=== PATIENT | male | born 1955 | race Caucasian/White ===

== ENCOUNTER 2016-08-26 09:41 | Emergency (ER) | payer BC ==
--- NOTE | ~2016-08-26 | ER ---
PATIENT'S NAME: [facility]OFF [facility] AGE: 60 Y [address] ROOM: [place] [address] LOCATION: ED ADMIT DATE: 08/26/2016 ER/Outpatient Report DISCHARGE DATE: 08/26/2016 FAMILY PHYSICIAN: Stacie Plunkett MD ATTENDING PHYSICIAN: Diana Gonzalez Time of Arrival: 0941 hours. Time of Evaluation: 1100 hours. IDENTIFICATION: A 60-year-old male. CHIEF COMPLAINT: Left foot wound bleeding. HISTORY OF PRESENT ILLNESS: The patient is a 60-year-old male, who has an ulcer on the medial aspect of his left foot, seen by Wound Care yesterday. A dressing was placed, which he is supposed to change on Sunday, and then follows up with them on . The dressing is soaked through with blood, so he came in to the ER today. He has diabetes. He has no pain. He does have some peripheral neuropathy. PAST MEDICAL HISTORY: ALLERGIES: CALAMINE LOTION. CURRENT MEDICATIONS: 1. Metformin. 2. Ramipril. 3. Tamsulosin. 4. Amlodipine. 5. Citalopram. 6. Simvastatin. 7. Tresiba. 8. Fish oil. 9. Aspirin. 10. Multivitamin. 11. Zyrtec. 12. Naproxen. 13. Cinnamon. 14. Prilosec. MEDICAL PROBLEMS: Diabetes mellitus, hyperlipidemia, and hypertension. PATIENT'S NAME: GEOFF [facility] AGE: 60 Y [address] ROOM: [place] [address] LOCATION: [facility] ADMIT DATE: 08/26/2016 ER/Outpatient Report DISCHARGE DATE: 08/26/2016 FAMILY PHYSICIAN: Stacie Plunkett MD ATTENDING PHYSICIAN: Diana Gonzalez SOCIAL HISTORY: The patient lives here in [place]. His primary care physician is Dr. Plunkett. Tobacco use, denies. Alcohol use, denies. Drug use, denies. REVIEW OF SYSTEMS: All systems reviewed and negative other than what is noted in the HPI. PHYSICAL EXAMINATION: VITAL SIGNS: Height 5 feet 11 inches, weight 138.6 kg. Blood pressure 153/62, pulse 76, respirations 16, temperature 97.3, and saturations 96% on room air. GENERAL: A 60-year-old male, in no acute distress. EXTREMITIES: Left lower extremity dressing was removed. The patient had dried blood on his foot, this was all cleaned up. He had no active areas of bleeding. He did have some superficial varicosities and venous staining. Again, no active bleeding. The wound had no surrounding erythema or drainage. Dressing again was applied with Skin-Prep to the wound margins and the Mepilex foam dressing reapplied in the ER. IMPRESSION: Left foot ulcer with bleeding varicosity, controlled. No active bleeding at this time. Dressing reapplied. Follow up with Wound Care, Sunday or Sunday. Follow up with Valentin at [facility] as scheduled, Sunday at 9:00 a.m. and keep their appointment on . The patient and his understand and agree, and all questions have been answered. DIANA GONZALEZ MD CAR/kriss /[id number] d: 08/27/16900 t: 08/27/16 1513, OUTPATIENT REPORT
[~2016-08-26 09:41] MED LIST: ALTACE10 MG PO; ASCORBIC ACID500 MG; ASPIR 8181 MG; CELEXA20 MG PO; CINNAMON500 MG; FISH OIL 1,0001 EACH; FLOMAX0.4 MG PO; GLUCOPHAGE1000 MG PO; IRON65; NAPROSYN500 MG; NORVASC5 MG PO; PRILOSEC20 MG; THERA-VITE W/ B1 TAB PO; TRESIBA FL100 UNIT/1 SUB-Q; ZOCOR40 MG PO; ZYRTEC10 M3
[2016-09-07] MEDS ORDERED: NORCO 10-325 T1 EACH PO (09:05)
== END 2016-08-26 11:27 | disposition disaster alternative care site (69) ==
LOC: GMED 09:41
DX: I83.025 Varicose veins of left lower extremity with ulcer other part of foot (principal); E11.40 Type 2 diabetes mellitus with diabetic neuropathy, unspecified; I10 Essential (primary) hypertension; E78.5 Hyperlipidemia, unspecified; Z79.84 Long term (current) use of oral hypoglycemic drugs; Z79.82 Long term (current) use of aspirin; Z79.1 Long term (current) use of non-steroidal anti-inflammatories (NSAID); Z79.4 Long term (current) use of insulin; Z79.899 Other long term (current) drug therapy; Z88.8 Allergy status to other drugs, medicaments and biological substances